=== PATIENT | female | born 1940 | race Caucasian/White ===

== ENCOUNTER 2019-10-11 20:24 | Observation (INO) | payer MEDICARE ==
[~2019-10-11] VITALS: Ht 160 cm; Wt 94.4 kg
--- NOTE | 2019-10-11 20:24 | NUR ---
PT TO ROOM 14 VIA WC. ABLE TO STAND AND TRANSFER ON OWN TO STRETCHER.
[2019-10-11] MEDS ORDERED: ASPIRIN81 MG PO (20:44)
[2019-10-11] MEDS ORDERED: METOPROL TAR25 MG PO (20:44)
[2019-10-11] MEDS ORDERED: DOXAZOSIN4 MG PO (20:44)
[2019-10-11] MEDS ORDERED: LIPITOR20 MG PO (20:45)
[2019-10-11 21:20] LABS: HEMATOCRIT 43.7 % (37.0-47.0); IMMATURE GRANULOCYTES 0.3 % (0.0-5.0); MEAN CELL VOLUME 97.8 fL CALC (80.0-100.0); MEAN CORPUSCULAR HGB 31.3 pG CALC (26.0-32.0); NEUT# 4.66 thou/uL (2.00-7.15); RED BLOOD COUNT 4.47 mill/uL (4.20-5.60); RED CELL DISTRI WIDTH 12.9 % (11.5-15.5)
--- NOTE | 2019-10-11 21:24 | NUR ---
PT RESTING ON STRETCHER, STATES SHE HAS NO PAIN AT THIS TIME AND FEELS BETTER
[2019-10-11 21:42] LABS: D-DIMER 0.65 mg/L (0.19-0.60); INTERNATIONAL NORMALIZED RATIO 0.9 RATIO (0.7-1.3); PROTHROMBIN TIME 9.9 SECONDS (9.0-12.5)
[2019-10-11 21:46] LABS: ALBUMIN 4.3 g/dL (3.2-5.0); ALKALINE PHOSPHATASE 135 u/l (38-126); ANION GAP 14 (6-22 (CALC)); BILIRUBIN, TOTAL 0.5 mg/dL (0.0-1.4); BUN 18 mg/dL (8-23); BUN/CREATININE RATIO 24 (12-20 (CALC)); CARBON DIOXIDE 28 mmol/l (22-30); CHLORIDE 104 mmol/l (95-108); CREATININE 0.8 mg/dL (0.5-1.0); GFR > 60 ML/MIN (>=60 (CALC)); GFR FOR AFR.AMER. > 60 ML/MIN (>=60 (CALC)); POTASSIUM 4.4 mmol/l (3.5-5.1); SGOT/AST 26 u/l (9-36); SODIUM 141 mmol/l (137-146); TOTAL PROTEIN 7.3 g/dL (6.3-8.2)
[2019-10-11 21:51] LABS: MYOGLOBIN 33 ng/mL (0 - 62)
--- NOTE | 2019-10-11 22:06 | NUR ---
ASSUMED CARE. FEELS BETTER...PAIN GONE.
--- NOTE | 2019-10-11 22:06 | NUR ---
REPORT GIVEN TO ELIAS LOPEZ
--- NOTE | 2019-10-11 23:00 | NUR ---
TO CT VIA STRETCHER.
--- NOTE | 2019-10-11 23:19 | NUR ---
RETURNED FROM RADIOLOGY
--- NOTE | 2019-10-12 00:30 | NUR ---
PT RESTING. NAD. NO C/O. ADVISED WILL BE GOING TO THE FLOOR. VSS.
--- NOTE | 2019-10-12 00:57 | NUR ---
ATTEMPTED TO CALL REPORT. NURSE WILL CALL BACK.
--- NOTE | 2019-10-12 01:09 | NUR ---
REPORT TO CHRISTOPHER/NURSE/MED-SURG
--- NOTE | 2019-10-12 01:40 | NUR ---
PT TO FLOOR VIA W/C AFTER VOIDING IN BR. NAD. FEELS BETTER.
[2019-10-12 01:45] VITALS: BP 141/65
--- NOTE | 2019-10-12 02:12 | NUR ---
[id number]- PT. ARRIVED TO THE FLOOR VIA W/C ACCOMPANIED BY ER NURSE. NO DISTRESS NOTED. A/A/OX4 AND AMBULATED TO BED WITH STEADY GAIT. VSS. EDUCATED ON POC, CALL LIGHT, AND ROOM; VERBALIZES UNDERSTANDING. IV SITE PATENT AND SL. PT. REPORTING NO CP, BUT REPORTS LEFT SHOULDER PAIN WITH MOVEMENT AND APPLIED WARM PACK TO SITE. PT. ALSO C/O FERNANDES AND MEDICATED WITH ORDERED MOTRIN, WILL REASSESS. TELEMETRY IN PLACE. PO FLUIDS OFFERED. ENCOURAGED TO CALL FOR ANY NEEDS. CALL LIGHT IS IN REACH.
[2019-10-12 05:00] VITALS: BP 105/60
--- NOTE | 2019-10-12 05:32 | NUR ---
PT. DENIES NEEDS. SCHED NITRO PASTE APPLIED TO LETFT CHEST. ENCOURAGED TO CALL FOR ANY NEEDS. VOICES NO CONCERNS.
--- NOTE | 2019-10-12 07:15 | NUR ---
REPORT RECEIVED FROM JOHN WHITE. PT SITTING UPRIGHT IN BED. REPORTS PAIN TO LEFT SHOULDER WITH MOVEMENT. CHEST DISCOMFORT RELIEVED PER PT. PLAN OF CARE DISCUSSED. REPORTING OF CONCERNS/ CHANGE IN CONDITION ENCORUAGED. CALL LIGHT REVIEWED AND IN REACH. PT STATES UNDERSTANDING.
[2019-10-12 08:15] VITALS: BP 114/61
[2019-10-12 08:23] VITALS: BP 114/61
--- NOTE | 2019-10-12 12:00 | NUR ---
DR. MORALES IN TO SEE PT. DISCHARGE HOME DISCUSSED AND AGREED UPON BY BOTH.
[2019-10-12] MEDS ORDERED: NAPROXEN500 MG PO (12:23)
--- NOTE | 2019-10-12 13:38 | NUR ---
Discharge instructions given. Patient verbalizes understanding of same. Discharged in stable condition via Wheelchair to Home with spouse. All belongings sent with pt.
== END 2019-10-12 13:56 | disposition home or self-care (01) ==
LOC: ED 20:24 → ED-I 10-12 → ED 10-12 00:15 → MS2 10-12 00:16
PROVIDERS: Family Medicine; ADMIT Internal Medicine; ATTEND Internal Medicine
DX: R07.89 Other chest pain (principal); I16.0 Hypertensive urgency; I10 Essential (primary) hypertension; E78.5 Hyperlipidemia, unspecified
CPT/HCPCS: G0378; J1650

== ENCOUNTER 2023-09-28 12:34 | Emergency (ER) | payer MEDICARE ==
[2023-09-28] VITALS (9 sets, daily range): BP systolic 107–170; BP diastolic 60–90
[~2023-09-28] VITALS: Ht 160 cm; Wt 71.0 kg
[~2023-09-28 12:34] MED LIST: ASPIRIN81 MG PO; DOXAZOSIN4 MG PO; LIPITOR20 MG PO; METOPROL TAR25 MG PO; NAPROXEN500 MG PO
[2023-09-28] MEDS ORDERED: LISINOPRIL10 MG PO (12:52)
[2023-09-28] MEDS ORDERED: LASIX20 MG PO (12:53)
[2023-09-28 13:18] LABS: BASO% 0.3 % (0-3); EOS% 2.8 % (0-8); HEMATOCRIT 46.2 % (37.0-47.0); HEMOGLOBIN 14.9 g/dl (12.0-16.0); IMMATURE GRANULOCYTES 0.1 % (0.0-5.0); LYMPH% 32.8 % (15-41); MEAN CELL VOLUME 99.4 fL CALC (80.0-100.0); MEAN CORPUSCULAR HGB CONC 32.3 g/dL CAL (32.0-36.0); MONO% 7.3 % (2-13); NEUT# 4.28 thou/uL (2.00-7.15); NEUT% 56.7 % (42-76); RED BLOOD COUNT 4.65 mill/uL (4.20-5.60); RED CELL DISTRI WIDTH 12.7 % (11.5-15.5); URINE BILIRUBIN - DIPSTICK Negative (NEGATIVE); URINE BLOOD DIPSTICK Negative (NEGATIVE); URINE GLUCOSE - DIPSTICK Negative (NEGATIVE); URINE KETONE Negative (NEGATIVE); URINE LEUK ESTERASE Negative (NEGATIVE); URINE NITRITE - DIPSTICK Negative (Negative); URINE PH 5.5 (4.5-8.0); URINE PROTEIN - DIPSTICK Negative (NEG-TRACE); URINE UROBILINOGEN - DIPSTICK 0.2 E.U./dL (0.2)
[2023-09-28 13:19] LABS: URINE COLOR Yellow
[2023-09-28 13:41] LABS: ALBUMIN 4.5 g/dL (3.2-5.0); ALKALINE PHOSPHATASE 117 u/l (38-126); ANION GAP 18 (6-22 (CALC)); BILIRUBIN, TOTAL 0.7 mg/dL (0.02-1.3); BUN 17 mg/dL (8-23); BUN/CREATININE RATIO 21 (12-20 (CALC)); CARBON DIOXIDE 23 mmol/l (22-30); CHLORIDE 104 mmol/l (95-108); CREATININE 0.8 mg/dL (0.5-1.0); GFR FOR AFR.AMER. > 60 ML/MIN (>=60 (CALC)); GFR OTHER RACES > 60 ML/MIN (>=60 (CALC)); MAGNESIUM 1.9 mg/dL (1.6-2.3); SGOT/AST 37 u/l (9-36); SODIUM 141 mmol/l (137-146); TOTAL PROTEIN 7.7 g/dL (6.3-8.2)
[2023-09-28] MEDS ORDERED: NAPROXEN500 MG PO (15:28)
[2023-09-28] MEDS ORDERED: MEDDOSEPAK PO (15:28)
[2023-09-28] MEDS ORDERED: METHOCARBAMOL500 MG PO (15:28)
== END 2023-09-28 15:45 | disposition home or self-care (01) ==
LOC: ED 12:34
PROVIDERS: Nurse Practitioner
DX: B34.9 Viral infection, unspecified (principal); S16.1XXA Strain of muscle, fascia and tendon at neck level, initial encounter; I11.0 Hypertensive heart disease with heart failure; I50.9 Heart failure, unspecified; E78.5 Hyperlipidemia, unspecified; X58.XXXA Exposure to other specified factors, initial encounter; Z20.822 Contact with and (suspected) exposure to COVID-19
CPT/HCPCS: Q9967